=== PATIENT | female | born 1960 | race Caucasian/White ===

== ENCOUNTER 2019-08-29 09:35 | Day surgery (SDC) | payer BC, OTHER ==
[~2019-08-29] VITALS: Ht 167.6 cm; Wt 85.8 kg
[2019-08-29] VITALS (10 sets, daily range): BP systolic 137–177; BP diastolic 73–124; PULSE 51–67; TEMP 97.3–97.4
[2019-08-29] MEDS ORDERED: ASPIRIN 81M81 MG/TA2 PO (10:29)
[2019-08-29] MEDS ORDERED: GLUCOPHAGE500 MG/TAB PO (10:30)
[2019-08-29] MEDS ORDERED: PRINIVIL40 MG PO (10:30)
[2019-08-29] MEDS ORDERED: MULTIPLE VITAMI1 CAP PO (10:31)
[2019-08-29] MEDS ORDERED: TOPROL XL 50MG50 MG PO (10:31)
[2019-08-29] MEDS ORDERED: PREMARIN 0.60.625 M1 PO ×2 (10:32→10:33)
[2019-08-29] MEDS ORDERED: ZOCOR 40MG40 MG PO (10:33)
[2019-08-29] MEDS ORDERED: ALDACTONE 25MG25 M1 PO (10:34)
[2019-08-29 10:53] LABS: HEMATOCRIT 50.7 % (37.0-47.0); HEMOGLOBIN 15.8 g/dl (12.5-16.0); MEAN CELL VOLUME 91 fl (80.0-100.0); MEAN CORPUSCULAR HEMOGLOBIN 28 pg (27.0-31.0); MEAN CORPUSCULAR HGB CONC 31 g/dl (33.0-37.0); MEAN PLATELET VOLUME 10.4 fl (7.4-10.4); PLATELET COUNT 193 K/mm3 (130-400); RED BLOOD COUNT 5.56 M/mm3 (4.10-5.30); REDCELL DISTRIBUTION WIDTH-CV 14.3 % (11.5-14.5)
[2019-08-29 11:02] LABS: CALCIUM 9.3 mg/dL (8.4-10.2); CREATININE, serum 0.93 (0.52-1.25); POTASSIUM 4.4 mmol/L (3.4-5.0); PROTHROMBIN TIME 12.2 SECONDS (9.7-12.8)
[2019-08-29 11:04] LABS: PARTIAL THROMBOPLASTIN TIME 30.7 SECONDS (26.0-37.0)
--- NOTE | 2019-08-29 12:33 | NUR ---
SEE MERGE FOR MEDICATION ADMINISTRATION TIMES AND INTRA AND POST SEDATION ASSESSMENTS.
--- NOTE | 2019-08-29 15:43 | NUR ---
ATTEMTPED TO TAKE 2ML AIR OUT OF RIGHT TR BAND AT 1500. PT STARTED OOZING FROM INSERTION SITE WITHIN 2 MINUTES. 2ML OF AIR PUT BACK IN RIGHT TR BAND. RIGHT RADIAL PULSE +1. CAP REFILL LESS THAN 3 SEC ON RIGHT RAND. NO OOZING FROM INSERTION SITE. HEMATOMA PRESENT AROUND INSERTION SITE AT 1530. CALLED ASSISTANT PROFESSOR OF PHILOSOPHY AND PER DR BRUSH ORDERS PUT IN A COUPLE MORE ML OF AIR AND HOLD PRESSURE ON HEMATOMA. 2 ML AIR ADDED TO RIGHT TR BAND, TOTAL OF 14 ML AIR. PRESSURE HELD FOR 5 MIN. HEMATOMA DOES NOT APPEAR TO BE WORSE. RADIAL PULSE +1. CAP REFILL LESS THAN 3 SEC.
--- NOTE | 2019-08-29 18:45 | NUR ---
Pt awake and alert, in no distress resting on bed. Pt care assumed was assumed at 1635 bs report from Violeta ZAMUDIO. Pt was awake and alert, p,w,d, no distress. 14 cc in band at 1635, 1 cc removed without complication. Air was removed gradually from band with the remainder of air removed at approx 1815. bandaid applied.
--- NOTE | 2019-08-29 18:52 | NUR ---
Discharge instructions given to pt.pt verbalizes understanding.INT removed,catheter tip intact.
== END 2019-08-29 19:08 | disposition home or self-care (01) ==
LOC: COL.CAR 09:35
PROVIDERS: Internal Medicine Cardiovascular Disease
DX: I25.10 Atherosclerotic heart disease of native coronary artery without angina pectoris (principal); J90 Pleural effusion, not elsewhere classified; E11.9 Type 2 diabetes mellitus without complications; E78.5 Hyperlipidemia, unspecified; I10 Essential (primary) hypertension; Z79.84 Long term (current) use of oral hypoglycemic drugs; Z88.1 Allergy status to other antibiotic agents; Z88.0 Allergy status to penicillin
CPT/HCPCS: J1644; J2250; J3010; Q9967

== ENCOUNTER 2022-02-01 06:39 | Day surgery (SDC) | payer BC ==
[2022-02-01] VITALS (802 sets, daily range): BP systolic 111–151; BP diastolic 70–90; PULSE 67–89; TEMP 97.7–98.4; O2SAT 81–100
[~2022-02-01] VITALS: Ht 167.6 cm; Wt 79.6 kg
[~2022-02-01 06:39] MED LIST: ALDACTONE 25MG25 M1 PO; ASPIRIN 81M81 MG/TA2 PO; GLUCOPHAGE500 MG/TAB PO; MULTIPLE VITAMI1 TA5 PO; PREMARIN .3MG0.3 MG PO; PREMARIN 0.60.625 M1 PO; PRINIVIL40 MG PO; TOPROL XL 50MG50 MG PO; ZOCOR 40MG40 MG PO
[2022-02-01 08:19] LABS: HEMATOCRIT 48.9 % (37.0-47.0); HEMOGLOBIN 15.9 g/dl (12.5-16.0); MEAN CELL VOLUME 90 fl (80.0-100.0); MEAN CORPUSCULAR HEMOGLOBIN 29 pg (27-31); MEAN CORPUSCULAR HGB CONC 33 g/dl (33.0-37.0); MEAN PLATELET VOLUME 11.4 fl (7.4-10.4); PLATELET COUNT 328 K/mm3 (130-400); RED BLOOD COUNT 5.45 M/mm3 (4.10-5.30); REDCELL DISTRIBUTION WIDTH-CV 12.4 % (11.5-14.5)
[2022-02-01] MEDS ORDERED: COREG 6.256.25 MG/TA PO (08:19)
[2022-02-01] MEDS ORDERED: FARXIGA10 PO (08:20)
[2022-02-01] MEDS ORDERED: DEMADEX 20MG20 M1 PO (08:23)
[2022-02-01 08:25] LABS: INR 1.1 (0.8-3.0); PROTHROMBIN TIME 12.1 SECONDS (9.7-12.8)
[2022-02-01 08:28] LABS: PARTIAL THROMBOPLASTIN TIME 33.9 SECONDS (26.0-37.0)
[2022-02-01 08:31] LABS: CALCIUM 10.1 mg/dL (8.4-10.2); CREATININE, serum 1.45 mg/dL (0.57-1.11); POTASSIUM 4.1 mmol/L (3.5-4.5)
[2022-02-01] MEDS ORDERED: COREG 3.123.125 MG/T PO (08:33)
--- NOTE | 2022-02-01 09:13 | NUR ---
SEE MERGE FOR ALL MEDICATION ADMINISTRATION TIMES, INTRA AND POST SEDATIONA ASSESSMENTS
--- NOTE | 2022-02-01 10:30 | NUR ---
Report received pt to transport to ICU.
--- NOTE | 2022-02-01 15:10 | NUR ---
Radial Heart Cath- Reviewed discharge instructions for radial heart catheterization. Cleaning site with mild soap and water, pat dry. Discussed monitoring for redness, hot to touch, inflammation, or temperature >100.4. Discussed when to contact the physician for signs of symptoms of complications or [place]. Also reviewed risk factors for heart disease. Covered applicable modifiable risk factors including the following: tobacco cessation, HTN, hyperlipidemia, diabetes, overweight/obesity, sedentary lifestyle, and stress/depression. Patient verbalized understanding. Referral sent to [facility] with patients permission. Approx 10 minutes spent 1:1 w/ patient, 5 minutes of chart review.
--- NOTE | 2022-02-01 15:40 | NUR ---
PT HAD SLIGHT BLEEDING AFTER REMOVAL OF 3ML OF AIR. RETURNED 3ML OF AIR.
--- NOTE | 2022-02-01 18:20 | NUR ---
PT CAME FROM [employer] THIS MORNING. PT ASSESSED. VSS. ASSESSED TR BAND. ATTEMPTED TO REMOVE 3ML OF AIR 3HRS AFTER PLACEMENT. MINOR BLEEDING. ADDED THE 3MLS BACK TO TR BAND. REMOVED A TOTAL OF 4MLS OF AIR FROM TR BAND DURING SHIFT.
--- NOTE | 2022-02-01 20:00 | NUR ---
SHIFT REPORT RECEIVED. PT WITH AT BEDSIDE. PT WITH RT RADIAL TR BAND S/P HEART CATH STENT PLACEMENT. NO REDNESS SWELLING HEMATOMA AT RADIAL SITE.
[2022-02-02] VITALS (581 sets, daily range): BP systolic 132–149; BP diastolic 81–95; PULSE 77–88; TEMP 97.6–98; O2SAT 59–100
--- NOTE | 2022-02-02 05:28 | NUR ---
SPOKE WITH PT'S , UPDATED ON PT'S STATUS OVER NIGHT.
--- NOTE | 2022-02-02 06:24 | NUR ---
END OF SHIFT: PT SLEPT THROUGH NIGHT BETWEEN DISTURBANCES. USED CALL LIGHT FOR BED SIDE COMMODE ASSISTANCE. RT RADIAL SITE SOFT FLAT NO PAIN AT SITE.
--- NOTE | 2022-02-02 07:40 | NUR ---
Pt laying in bed, awake, A&O, denies needs at this time. Pt on room air. No concerns noted.
[2022-02-02 07:43] LABS: CALCIUM 9.7 mg/dL (8.4-10.2); CREATININE, serum 1.32 mg/dL (0.57-1.11); POTASSIUM 4.3 mmol/L (3.5-4.5)
[2022-02-02] MEDS ORDERED: BRILINTA90 MG PO (09:51)
--- NOTE | 2022-02-02 12:40 | NUR ---
Pt discharge instructions discussed and reviewed with pt, verbalized understanding. All questions answered. IV removed with cath tip intact. NO concerns noted. Pt escorted out via WC to POV with to home.
== END 2022-02-02 12:40 | disposition home or self-care (01) ==
LOC: COL.CAR 06:39 → ICU 06:39 → COL.CAR 06:45 → ICU 13:58 → COL.CAR 02-02 12:40
PROVIDERS: Internal Medicine Cardiovascular Disease
DX: I25.10 Atherosclerotic heart disease of native coronary artery without angina pectoris (principal); Z86.16 Personal history of COVID-19
CPT/HCPCS: OP; A9270; C1769; C1874; C1887; C9600; J0583; J1644; J2250; J3010